=== PATIENT | male | born 2000 | race Two or more races ===

== ENCOUNTER 2020-07-04 11:38 | Emergency (ER) | payer MEDICAID ==
[~2020-07-04] VITALS: Ht 175.3 cm; Wt 72.6 kg
[2020-07-04 12:06] VITALS: BP 124/85
[2020-07-04] MEDS ORDERED: PANTOPRAZOLE 40 MG/10 ML VIAL INJ IV ONE ×2 (12:24→12:30)
[2020-07-04] MEDS ORDERED: PANTOPRAZOLE 40 MG TAB PO ONE (12:30)
[2020-07-04 12:42] LABS: Basophils # (auto) 0 10 ^3/uL (0-0.2); Basophils % (auto) 0.5 % (0.0-2.0); Eosinophils # (auto) 0 10 ^3/uL (0-0.8); Eosinophils % (auto) 0.3 % (0.0-7.0); Hematocrit 42.2 % (41.0-53.0); Hemoglobin 14.5 g/dL (13.5-17.5); Lymphocytes # (auto) 2.2 10 ^3/uL (0.4-5.4); Lymphocytes % (auto) 30.9 % (10.0-50.0); Mean Corpuscular Hemoglobin 31.6 pg (28.0-32.0); Mean Corpuscular Hgb Conc. 34.4 g/dL (32.0-36.0); Mean Corpuscular Volume 91.9 fL (80.0-100.0); Monocytes # (auto) 0.6 10 ^3/uL (0-1.3); Monocytes % (auto) 8.2 % (0.0-12.0); Neutrophils # (auto) 4.3 10 ^3/uL (1.6-8.6); Neutrophils % (auto) 60.1 % (37.0-80.0); Nucleated Red Blood Cells % 0.2 %; Platelet Count (auto) 252 10^3/uL (140-450); Red Blood Cells 4.59 10^6/uL (4.5-5.90); Red Cell Distribution Width 12.5 % (11.8-14.3); White Blood Cell 7.2 10^3/uL (4.4-10.8)
[2020-07-04 13:06] LABS: Albumin 3.9 g/dL (3.4-5.0); Calcium 9.1 mg/dL (8.5-10.1); Potassium 4.1 mmol/L (3.5-5.1)
[2020-07-04 13:11] LABS: BUN/Creatinine Ratio 13.5; Bilirubin, Total 0.3 mg/dL (0.2-1.0); Total Protein 7.6 g/dL (6.4-8.2)
== END 2020-07-04 13:56 | disposition home or self-care (01) ==
LOC: ER 11:38
DX: K29.00 Acute gastritis without bleeding (principal); K59.00 Constipation, unspecified; F17.210 Nicotine dependence, cigarettes, uncomplicated
CPT/HCPCS: 36415; 74176; 80053; 83690; 85025; 96374; 99284; C9113

== ENCOUNTER 2021-01-08 19:47 | Emergency (ER) | payer SELFPAY ==
[~2021-01-08] VITALS: Ht 175.3 cm; Wt 72.6 kg
[2021-01-08 19:47] VITALS: BP 148/87
== END 2021-01-08 23:53 | disposition left against medical advice (07) ==
LOC: ER 19:48
DX: R10.13 Epigastric pain (principal); Z53.21 Procedure and treatment not carried out due to patient leaving prior to being seen by health care provider